=== PATIENT | male | born 1940 | race Hispanic/Latino ===

== ENCOUNTER 2017-02-19 00:58 | Emergency (ER) | payer MEDICARE ==
--- NOTE | 2017-02-19 02:44 | Emergency Department Report ---
ED Altered Mental Status HPI - General Chief Complaint: Altered Mental Status Stated Complaint: AMS/LOC Time Seen by Provider: 02/19/17 02:25 Source: patient, EMS Mode of arrival: Stretcher Limitations: No Limitations - History of Present Illness Initial Comments: 76 years old male brought by EMS for evaluation of altered mental status. Per patient's daughter she stated that around 11:30 last night he was talking gibberish that continue for 1-1/2 hours and it went away. Denied any focal weakness or numbness or tingling sensation no seizure activities. As stated that she is missing 6 tablets of Ambien 10 mg although patient denied taking that medication. Patient is also on a regular pain medication such as oxycodone. MD Complaint: altered mental status, confusion Severity: mild Associated Symptoms: denies other symptoms - Related Data Home Medications Medication Instructions Recorded Confirmed Last Taken Metoprolol [Lopressor TAB] 25 mg PO DAILY 01/17/14 10/19/14 10/18/14 Prasugrel [Effient] 10 mg PO DAILY 01/17/14 10/19/14 10/18/14 Spironolactone Tab [Aldactone Tab] 25 mg PO DAILY 01/17/14 10/19/14 10/18/14 Tamsulosin [Flomax] 0.4 mg PO DAILY 01/17/14 10/19/14 10/18/14 Esomeprazole Magnesium [NexIUM] 40 mg PO QDAY 10/19/14 10/19/14 10/18/14 Losartan [Cozaar] 25 mg PO QDAY 10/19/14 10/19/14 10/18/14 Multivitamin [Multi Vitamin Daily] 1 tab PO DAILY 10/19/14 10/19/14 10/18/14 diphenhydrAMINE [Benadryl] 25 mg PO DAILY 10/19/14 10/19/14 10/18/14 Previous Rx's Medication Instructions Recorded Last Taken Type Oxycodone HCl/Acetaminophen 1 each PO Q6HR PRN #30 tablet 10/19/14 Unknown Rx [Percocet 7.5/325 mg] Allergies Allergy/AdvReac Type Severity Reaction Status Date / Time aspirin Allergy Bleeding Verified 02/19/17 01:56 ED Review of Systems ROS: Stated complaint: AMS/LOC Other details as noted in HPI Comment: All other systems reviewed and negative Constitutional: denies: chills, fever Respiratory: denies: cough, shortness of breath, SOB with exertion Gastrointestinal: denies: abdominal pain, nausea, vomiting Neurological: confusion (gone). denies: headache, weakness, numbness, paresthesias ED Past Medical Hx - Past Medical History Previous Medical History?: Yes Hx Hypertension: Yes Hx Heart Attack/AMI: Yes - Surgical History Past Surgical History?: Yes Hx Coronary Stent: Yes Hx Pacemaker: Yes Hx Internal Defibrillator: Yes - Social History Smoking Status: Former Smoker Substance Use Type: None - Medications Home Medications: Home Medications Medication Instructions Recorded Confirmed Last Taken Type Metoprolol [Lopressor TAB] 25 mg PO DAILY 01/17/14 10/19/14 10/18/14 History Prasugrel [Effient] 10 mg PO DAILY 01/17/14 10/19/14 10/18/14 History Spironolactone Tab [Aldactone Tab] 25 mg PO DAILY 01/17/14 10/19/14 10/18/14 History Tamsulosin [Flomax] 0.4 mg PO DAILY 01/17/14 10/19/14 10/18/14 History Esomeprazole Magnesium [NexIUM] 40 mg PO QDAY 10/19/14 10/19/14 10/18/14 History Losartan [Cozaar] 25 mg PO QDAY 10/19/14 10/19/14 10/18/14 History Multivitamin [Multi Vitamin Daily] 1 tab PO DAILY 10/19/14 10/19/14 10/18/14 History Oxycodone HCl/Acetaminophen 1 each PO Q6HR PRN #30 tablet 10/19/14 Unknown Rx [Percocet 7.5/325 mg] diphenhydrAMINE [Benadryl] 25 mg PO DAILY 10/19/14 10/19/14 10/18/14 History ED Physical Exam - General Limitations: No Limitations General appearance: alert, in no apparent distress - Head Head exam: Present: atraumatic, normocephalic - Eye Eye exam: Present: normal appearance - ENT ENT exam: Present: normal exam - Neck Neck exam: Present: normal inspection - Respiratory Respiratory exam: Present: normal lung sounds bilaterally. Absent: wheezes, rales, rhonchi - Cardiovascular Cardiovascular Exam: Present: regular rate, normal rhythm, normal heart sounds - GI/Abdominal GI/Abdominal exam: Present: soft. Absent: distended, tenderness, guarding, rebound, mass, pulsatile mass - Back Exam Back exam: Absent: tenderness, CVA tenderness (R), CVA tenderness (L) - Neurological Exam Neurological exam: Present: alert, oriented X3, CN II-XII intact. Absent: motor sensory deficit - Skin Skin exam: Present: warm, intact, normal color ED Course Vital Signs 02/19/17 02/19/17 02/19/17 02:13 04:02 04:03 Temperature 97 F L 97.7 F Pulse Rate 79 73 Respiratory 18 18 18 Rate Blood Pressure 113/44 128/65 [Left] O2 Sat by Pulse 97 98 Oximetry - Reevaluation(s) Reevaluation #1: 02/19/17 04:46 Patient is alert oriented 3 into his daughter in no acute distress able to answer all questions appropriately. No focal neurological deficit. Blood works and CT scan came back with no acute abnormalities. I believe this is most likely from his medication I did advise his daughter to administer his medication. This patient agreed. - Lab Data Result diagrams: 02/19/17 03:02 02/19/17 03:02 Lab Results 02/19/17 02/19/17 02/19/17 Range/Units 03:02 03:02 03:02 WBC 11.0 (4.5-11.0) K/mm3 RBC 3.43 L (3.65-5.03) M/mm3 Hgb 11.6 L (11.8-15.2) gm/dl Hct 34.5 L (35.5-45.6) % MCV 101 H (84-94) fl MCH 34 H (28-32) pg MCHC 34 (32-34) % RDW 14.2 (13.2-15.2) % Plt Count 309 (140-440) K/mm3 Lymph % (Auto) 16.0 (13.4-35.0) % [place] % (Auto) 6.6 (0.0-7.3) % Eos % (Auto) 2.1 (0.0-4.3) % Baso % (Auto) 0.8 (0.0-1.8) % Lymph # 1.8 (1.2-5.4) K/mm3 [place] # 0.7 (0.0-0.8) K/mm3 Eos # 0.2 (0.0-0.4) K/mm3 Baso # 0.1 (0.0-0.1) K/mm3 Seg Neutrophils % 74.5 H (40.0-70.0) % Seg Neutrophils # 8.2 H (1.8-7.7) K/mm3 Sodium 139 (137-145) mmol/L Potassium 4.6 (3.6-5.0) mmol/L Chloride 100.0 (98-107) mmol/L Carbon Dioxide 28 (22-30) mmol/L Anion Gap 16 mmol/L BUN 9 (9-20) mg/dL Creatinine 0.6 L (0.8-1.5) mg/dL Estimated GFR > 60 ml/min BUN/Creatinine Ratio 15.00 % Glucose 100 (75-100) mg/dL Lactic Acid 1.10 (0.7-2.0) mmol/L Calcium 9.0 (8.4-10.2) mg/dL Total Bilirubin 0.40 (0.1-1.2) mg/dL AST 11 (5-40) units/L ALT 10 (7-56) units/L Alkaline Phosphatase 82 (35-129) units/L Troponin T < 0.010 (0.00-0.029) ng/mL Total Protein 6.0 L (6.3-8.2) g/dL Albumin 3.5 L (3.9-5) g/dL Albumin/Globulin Ratio 1.4 % Urine Color (Yellow) Urine Turbidity (Clear) Urine pH (5.0-7.0) Ur Specific [place] (1.003-1.030) Urine Protein (Negative) mg/dL Urine Glucose (UA) (Negative) mg/dL Urine Ketones (Negative) mg/dL Urine Blood (Negative) Urine Nitrite (Negative) Urine Bilirubin (Negative) Urine Urobilinogen (<2.0) mg/dL Ur Leukocyte Esterase (Negative) Urine WBC (Auto) (0.0-6.0) /HPF Urine RBC (Auto) (0.0-6.0) /HPF U Epithel Cells (Auto) (0-13.0) /HPF Plasma/Serum Alcohol (0-0.07) gm% 02/19/17 02/19/17 Range/Units 03:02 03:20 WBC (4.5-11.0) K/mm3 RBC (3.65-5.03) M/mm3 Hgb (11.8-15.2) gm/dl Hct (35.5-45.6) % MCV (84-94) fl MCH (28-32) pg MCHC (32-34) % RDW (13.2-15.2) % Plt Count (140-440) K/mm3 Lymph % (Auto) (13.4-35.0) % [place] % (Auto) (0.0-7.3) % Eos % (Auto) (0.0-4.3) % Baso % (Auto) (0.0-1.8) % Lymph # (1.2-5.4) K/mm3 [place] # (0.0-0.8) K/mm3 Eos # (0.0-0.4) K/mm3 Baso # (0.0-0.1) K/mm3 Seg Neutrophils % (40.0-70.0) % Seg Neutrophils # (1.8-7.7) K/mm3 Sodium (137-145) mmol/L Potassium (3.6-5.0) mmol/L Chloride (98-107) mmol/L Carbon Dioxide (22-30) mmol/L Anion Gap mmol/L BUN (9-20) mg/dL Creatinine (0.8-1.5) mg/dL Estimated GFR ml/min BUN/Creatinine Ratio % Glucose (75-100) mg/dL Lactic Acid (0.7-2.0) mmol/L Calcium (8.4-10.2) mg/dL Total Bilirubin (0.1-1.2) mg/dL AST (5-40) units/L ALT (7-56) units/L Alkaline Phosphatase (35-129) units/L Troponin T (0.00-0.029) ng/mL Total Protein (6.3-8.2) g/dL Albumin (3.9-5) g/dL Albumin/Globulin Ratio % Urine Color Yellow (Yellow) Urine Turbidity Clear (Clear) Urine pH 7.0 (5.0-7.0) Ur Specific [place] 1.009 (1.003-1.030) Urine Protein <15 mg/dl (Negative) mg/dL Urine Glucose (UA) Neg (Negative) mg/dL Urine Ketones Neg (Negative) mg/dL Urine Blood Neg (Negative) Urine Nitrite Neg (Negative) Urine Bilirubin Neg (Negative) Urine Urobilinogen < 2.0 (<2.0) mg/dL Ur Leukocyte Esterase Neg (Negative) Urine WBC (Auto) 1.0 (0.0-6.0) /HPF Urine RBC (Auto) 2.0 (0.0-6.0) /HPF U Epithel Cells (Auto) < 1.0 (0-13.0) /HPF Plasma/Serum Alcohol < 0.01 (0-0.07) gm% Critical care attestation.: If time is entered above; I have spent that time in minutes in the direct care of this critically ill patient, excluding procedure time. ED Disposition Clinical Impression: Altered mental state Disposition: DC-01 TO HOME OR SELFCARE Is pt being admited?: No Condition: Stable Instructions: Altered Mental Status (ED) Referrals: PRIMARY CARE, [Primary Care Provider] - 3-5 Days
[2017-02-19 03:24] LABS: Basophils % (Auto) 0.8 % (0.0-1.8); Eosinophils % (Auto) 2.1 % (0.0-4.3); Hematocrit 34.5 % (35.5-45.6); Hemoglobin 11.6 gm/dl (11.8-15.2); Mean Corpuscular HGB Conc 34 % (32-34); Mean Corpuscular Hemoglobin 34 pg (28-32); Mean Corpuscular Volume 101 fl (84-94); Platelet Count 309 K/mm3 (140-440); Red Blood Count 3.43 M/mm3 (3.65-5.03); Red Cell Distribution Width 14.2 % (13.2-15.2)
[2017-02-19 03:44] LABS: Alanine Aminotransferase 10 units/L (7-56); Albumin 3.5 g/dL (3.9-5); Albumin/Globulin Ratio 1.4 %; Alkaline Phosphatase 82 units/L (35-129); Anion Gap 16 mmol/L; Blood Urea Nitrogen 9 mg/dL (9-20); Carbon Dioxide 28 mmol/L (22-30); Glucose 100 mg/dL (75-100); Potassium 4.6 mmol/L (3.6-5.0); Sodium 139 mmol/L (137-145)
[2017-02-19 03:59] LABS: Bilirubin,Urine NEG (Negative); Blood,Urine NEG (Negative); Ketones,Urine NEG (Negative); Leukocyte Esterase,Urine NEG (Negative); Nitrite,Urine NEG (Negative); Protein,Urine <15 mg/dL mg/dL (Negative); Urobilinogen,Urine < 2.0 mg/dL (<2.0)
--- NOTE | 2017-02-19 04:12 | Cat Scan Report ---
FINAL REPORT PROCEDURE: CT HEAD/BRAIN WO CON TECHNIQUE: Computerized tomography of the head was performed without contrast material. HISTORY: Altered Mental Status COMPARISON: No prior studies are available for comparison. FINDINGS: Skull and scalp: Normal. Paranasal sinuses: There is fluid in the sphenoid sinus.. Ventricles and subarachnoid spaces: There is mild central and cortical atrophy. There is no hydrocephalus or asymmetry.. Cerebrum: No evidence of hemorrhage, acute infarction or mass . Cerebellum and brainstem: No evidence of hemorrhage, acute infarction or mass. Vasculature: There is minimal calcified atherosclerosis of the intracranial arteries.. Comments: None. IMPRESSION: There is no acute intracranial abnormality.
[2017-02-19 05:52] VITALS: BP 128/77
== END 2017-02-19 05:39 | disposition home or self-care (01) ==
LOC: ED 00:58
DX: R41.82 Altered mental status, unspecified (principal); I10 Essential (primary) hypertension; I25.2 Old myocardial infarction
CPT/HCPCS: 36415; 70450; 80053; 81001; 82140; 84484; 85025; 99285; G0480; 80320

== ENCOUNTER 2019-08-13 08:03 | Day surgery (SDC) | payer MEDICARE ==
[2019-08-13] MEDS ORDERED: SODIUM CHLORIDE 0.9% 500 ML 500 ML IV SCH (09:00)
[2019-08-13 09:07] LABS: Basophils # (Auto) 0.1 K/mm3 (0.0-0.1); Basophils % (Auto) 0.8 % (0.0-1.8); Eosinophils # (Auto) 0.2 K/mm3 (0.0-0.4); Eosinophils % (Auto) 2.3 % (0.0-4.3); Hematocrit 32.1 % (35.5-45.6); Hemoglobin 10.9 gm/dl (11.8-15.2); Lymphocytes # (Auto) 1.6 K/mm3 (1.2-5.4); Lymphocytes % (Auto) 14.9 % (13.4-35.0); Mean Corpuscular HGB Conc 34 % (32-34); Mean Corpuscular Volume 98 fl (84-94); Monocytes % (Auto) 9.2 % (0.0-7.3); Platelet Count 432 K/mm3 (140-440); Red Blood Count 3.26 M/mm3 (3.65-5.03); Red Cell Distribution Width 14.3 % (13.2-15.2)
[2019-08-13 09:18] LABS: INR 1.1 (0.87-1.13)
[2019-08-13 09:19] LABS: Partial Thromboplastin Time 37.7 Sec. (24.2-36.6)
[2019-08-13] MEDS ORDERED: HYDROmorphone 1 MG/1 ML INJ IV NR (10:18)
[2019-08-13] MEDS ORDERED: ONDANSETRON 4 MG/2 ML INJ IV NR (10:19)
[2019-08-13] MEDS ORDERED: HYDROmorphone 1 MG/1 ML INJ ONE (12:47)
[2019-08-13] MEDS ORDERED: HYDROmorphone 1 MG/1 ML INJ IV ONE (13:02)
--- NOTE | 2019-08-13 14:19 | Cat Scan Report ---
CT-GUIDED LIVER BIOPSY INDICATION : Liver mass, lung mass. COMPARISON: None PROCEDURE: The risks (including but not limited to bleeding and infection) and benefits were explain ed to the patient and informed consent was obtained. All CT scans at this location are performed usi ng CT dose reduction for ALARA by means of automated exposure control. A time out procedure was performed. The procedure site was prepped and draped in the usual sterile f ashion and lidocaine was used for local anesthesia. Anxiolysis was accomplished with IV Dilaudid and Zofran. Using CT guidance, a 17-gauge introducer needle was advanced to the leading edge of a 3.5 cm hypodens e mass in the right hepatic lobe. Two 18-gauge core biopsies were obtained. Pathology was present and deemed the samples adequate. The patient tolerated the procedure well with no complications. IMPRESSION: Successful CT-guided biopsy of a 3.5 cm right hepatic lobe mass. Signer Name: Vick Lamar Jr, MD Signed: 08/13/2019 2:15 PM Workstation Name: [id number]
[2019-08-13] MEDS ORDERED: HYDROcodone/ACETAMINOPHEN 5-325 MG TAB PO ONE (14:42)
[2019-08-13] MEDS ORDERED: HYDROcodone/ACETAMINOPHEN 5-325 MG TAB ONE (14:46)
[2019-08-13 15:42] VITALS: BP 103/54
== END 2019-08-13 16:00 | disposition home or self-care (01) ==
LOC: CATHLABREC 08:03 → EDSTATUS 08:30 → CATHLABREC 16:00
PROVIDERS: ATTEND Internal Medicine Hematology & Oncology
DX: C78.7 Secondary malignant neoplasm of liver and intrahepatic bile duct (principal); C7A.1 Malignant poorly differentiated neuroendocrine tumors; R91.8 Other nonspecific abnormal finding of lung field; I10 Essential (primary) hypertension; M19.90 Unspecified osteoarthritis, unspecified site; Z88.6 Allergy status to analgesic agent; Z79.899 Other long term (current) drug therapy; Z87.891 Personal history of nicotine dependence; Z95.0 Presence of cardiac pacemaker; Z98.890 Other specified postprocedural states; Z82.49 Family history of ischemic heart disease and other diseases of the circulatory system
CPT/HCPCS: 36415; 47000; 77012; 85025; 85610; 85730; 88307; 88333; 88342; J1170; J2405; J7040; 88172; 88173; 96374; 96375; A4648